=== PATIENT | male | born 1970 | race Caucasian/White ===

== ENCOUNTER 2021-01-28 12:35 | Emergency (ER) | payer SELFPAY ==
[~2021-01-28] VITALS: Ht 190.5 cm; Wt 61.2 kg
== END 2021-01-28 13:15 | disposition home or self-care (01) ==
LOC: ED 12:35
DX: S61.412A Laceration without foreign body of left hand, initial encounter (principal); Z88.8 Allergy status to other drugs, medicaments and biological substances; X58.XXXA Exposure to other specified factors, initial encounter; Y93.89 Activity, other specified; Y92.89 Other specified places as the place of occurrence of the external cause; Y99.8 Other external cause status

== ENCOUNTER 2022-01-12 23:05 | Emergency (ER) | payer SELFPAY ==
[~2022-01-12] VITALS: Ht 190.5 cm; Wt 59.0 kg
[2022-01-13] MEDS ORDERED: PREDNISONE50 MG PO (00:10)
== END 2022-01-13 00:15 | disposition home or self-care (01) ==
LOC: ED 23:05
DX: T78.3XXA Angioneurotic edema, initial encounter (principal); Y92.89 Other specified places as the place of occurrence of the external cause